=== PATIENT | female | born 1990 | race Asian ===

== ENCOUNTER 2020-06-23 23:10 | Emergency (ER) | payer BC ==
[~2020-06-23] VITALS: Ht 157.5 cm; Wt 50.8 kg
[2020-06-23 23:27] VITALS: Ht 157.5 cm; Wt 50.8 kg
[2020-06-24 00:26] LABS: BASOPHIL % 2.2 % (0-2); PLATELET COUNT 418 x10^3mcL (130-400); RED CELL DISTRIBUTION WIDTH 15.8 % (11.5-14.5)
[2020-06-24 00:33] LABS: CALCIUM 9.5 mg/dL (8.5-10.1); CARBON DIOXIDE 17.8 mmol/L (21-32); CHLORIDE SERUM 101 mmol/L (98-107); CREATININE SERUM 0.6 mg/dL (0.6-1.0); GFR1 > 60 mL/min; GLUCOSE SERUM 113 mg/dL (74-106); POTASSIUM SERUM 3.6 mmol/L (3.5-5.1); SODIUM SERUM 138 mmol/L (136-145)
[2020-06-24 00:38] LABS: ALBUMIN 4.6 g/dL (3.4-5.0); ALKALINE PHOSPHATASE 67 U/L (46-116); ALT/SGPT 52 U/L (14-59); AST/SGOT 36 U/L (15-37); BILIRUBIN TOTAL 0.5 mg/dL (0.20-1.00); LIPASE 116 IU/L (73-393); TOTAL PROTEIN, SERUM 8.6 g/dL (6.4-8.2)
[2020-06-24 02:02] VITALS: BP 115/88
== END 2020-06-24 02:03 | disposition home or self-care (01) ==
LOC: ED 23:10
PROVIDERS: Student in an Organized Health Care Education/Training Program
DX: R51 Headache (principal); R10.9 Unspecified abdominal pain; R11.2 Nausea with vomiting, unspecified; Z20.828 Contact with and (suspected) exposure to other viral communicable diseases
CPT/HCPCS: J0780; J2405; J7030; Q0163; Q9967; U0003-CS